=== PATIENT | male | born 1970 | race Hispanic/Latino ===

== ENCOUNTER 2022-02-11 19:55 | Inpatient (IN) | payer SELFPAY ==
[2022-02-11] MEDS ORDERED: Ondansetron PF 4 MG/2 ML Vial ONE (20:02)
[2022-02-11] MEDS ORDERED: Morphine 4 MG/ML VIAL ONE (20:02)
[2022-02-11] MEDS ORDERED: Aspirin Chewable 81 MG TAB ONE (20:19)
[2022-02-11 20:28] LABS: #Basophils 0.1 thou/uL (0.0-0.2); #Eosinphils 0.1 thou/uL (0.0-0.7); #Lymphocytes 3.9 thou/uL (1.20-3.40); #Monocytes 0.4 thou/uL (0.11-0.59); #Neutrophils 4.6 thou/uL (1.40-6.50); %Eosinophils 1.4 % (0.0-10.0); %Lymphocytes 42.7 % (21.0-51.0); %Monocytes 4.7 % (0.0-10.0); %Neutrophils 50.2 % (42.0-75.0); Hemoglobin 14.9 g/dL (14.0-18.0); Mean Corpuscular HGB CONC 33.7 g/dL (32.0-36.0); Mean Corpuscular Hemoglobin 33.1 pg (27.0-31.0); Mean Corpuscular Volume 98.3 fL (78.0-98.0); Mean Platelet Volume 5.8 fL (7.4-10.4); Platelet Count 295 thou/uL (130-400); RBC Distribution Width 12.8 % (11.5-14.5); Red Blood Cell (RBC) Count 4.48 mill/uL (4.70-6.10); White Blood Cell (WBC) Count 9.1 thou/uL (4.8-10.8)
[2022-02-11 20:44] LABS: ALT (SGPT) 23 U/L (8-55); AST (SGOT) 29 U/L (5-34); Albumin 4.2 g/dL (3.5-5.0); Alkaline Phosphatase 85 U/L (40-110); Anion Gap 15 mmol/L (10-20); BUN (Urea Nitrogen) 6 mg/dL (8.9-20.6); Bilirubin, Total 0.3 mg/dL (0.2-1.2); Calc. Creatinine Clearance 0 mL/min (70-130); Calcium 8.4 mg/dL (7.8-10.44); Carbon Dioxide 23 mmol/L (22-29); Chloride 108 mmol/L (98-107); Globulin 3.1 g/dL (2.4-3.5); Glucose 85 mg/dL (70-105); Potassium 3.7 mmol/L (3.5-5.1); Protein, Total 7.3 g/dL (6.0-8.3); Sodium 142 mmol/L (136-145)
[2022-02-11] MEDS ORDERED: Bisacodyl 10 MG SUPP PR PRN (22:37)
[2022-02-11] MEDS ORDERED: Ondansetron PF 4 MG/2 ML Vial IVP PRN (22:37)
[2022-02-11] MEDS ORDERED: hydrALAZINE 20 MG/ML VIAL SLOW IVP PRN (22:39)
[2022-02-11] MEDS ORDERED: Sodium Chloride 0.9% 1,000 ML IV SCH (22:45)
[2022-02-11] MEDS ORDERED: Morphine 2 MG/ML VIAL SLOW IVP SCH (23:00)
[2022-02-12 00:48] LABS: Troponin I Less than 0.010 ng/mL (< 0.028)
[2022-02-12] MEDS: Dextrose 5 % And 0.9 % NaCl 1,000 ML IV SCH ×2 (01:26→13:09)
[2022-02-12 04:09] LABS: SARS-CoV-2 NAA Rapid Test Not Detected (NotDetected)
[2022-02-12 05:24] LABS: ALT (SGPT) 22 U/L (8-55); AST (SGOT) 28 U/L (5-34); Alkaline Phosphatase 80 U/L (40-110); Anion Gap 14 mmol/L (10-20); BUN (Urea Nitrogen) 7 mg/dL (8.9-20.6); Bilirubin, Total 0.6 mg/dL (0.2-1.2); Calc. Creatinine Clearance 131 mL/min (70-130); Calcium 8.4 mg/dL (7.8-10.44); Carbon Dioxide 22 mmol/L (22-29); Chloride 108 mmol/L (98-107); Globulin 2.8 g/dL (2.4-3.5); Glucose 82 mg/dL (70-105); Potassium 3.8 mmol/L (3.5-5.1); Protein, Total 6.8 g/dL (6.0-8.3); Sodium 140 mmol/L (136-145)
[2022-02-12 05:25] LABS: Troponin I Less than 0.010 ng/mL (< 0.028)
[2022-02-12] MEDS: Morphine 2 MG/ML VIAL SLOW IVP PRN ×2 (05:27→10:22)
[2022-02-12] MEDS: Nicotine 14 MG PATCH TD SCH (05:28)
[2022-02-12] MEDS ORDERED: Enoxaparin Sodium 40 MG/0.4 ML SYRINGE SC SCH (09:00)
[2022-02-12] MEDS: Famotidine 20 MG TAB PO SCH ×2 (10:03→22:50)
[2022-02-12] MEDS ORDERED: MD-Gastroview 120 ML BOT ONE (10:18)
[2022-02-12] MEDS ORDERED: HYDROcodone/Acetaminophen 5/325 mg Tablet PO PRN (12:49)
[2022-02-12] MEDS ORDERED: Morphine 2 MG/ML VIAL SLOW IVP PRN (12:50)
[2022-02-12 13:55] VITALS: BMI 20.9
[2022-02-12] MEDS: methylPREDNISolone Sod Succ 40 MG VIAL IVP SCH (18:31)
[2022-02-12] MEDS ORDERED: ALPRAZolam 0.5 MG TAB PO PRN (19:01)
[2022-02-12] MEDS ORDERED: Cyclobenzaprine 10 MG TAB PO PRN (19:01)
[2022-02-12] MEDS ORDERED: Senokot 8.6 MG TAB PO SCH (21:00)
[2022-02-13] MEDS: methylPREDNISolone Sod Succ 40 MG VIAL IVP SCH ×2 (00:36→05:25)
[2022-02-13] MEDS: Dextrose 5 % And 0.9 % NaCl 1,000 ML IV SCH ×2 (00:36→08:44)
[2022-02-13] MEDS: Nicotine 14 MG PATCH TD SCH (00:36)
[2022-02-13 04:47] LABS: #Lymphocytes 0.8 thou/uL (1.20-3.40); #Monocytes 0.1 thou/uL (0.11-0.59); #Neutrophils 5.7 thou/uL (1.40-6.50); %Basophils 0.3 % (0.0-1.0); %Eosinophils 0.1 % (0.0-10.0); %Monocytes 0.9 % (0.0-10.0); %Neutrophils 86.7 % (42.0-75.0); Hemoglobin 15.8 g/dL (14.0-18.0); Mean Corpuscular HGB CONC 32.6 g/dL (32.0-36.0); Mean Corpuscular Hemoglobin 32.4 pg (27.0-31.0); Mean Corpuscular Volume 99.3 fL (78.0-98.0); Mean Platelet Volume 6.4 fL (7.4-10.4); Platelet Count 286 thou/uL (130-400); RBC Distribution Width 12.6 % (11.5-14.5); Red Blood Cell (RBC) Count 4.87 mill/uL (4.70-6.10); White Blood Cell (WBC) Count 6.6 thou/uL (4.8-10.8)
[2022-02-13 05:24] LABS: Anion Gap 12 mmol/L (10-20); BUN (Urea Nitrogen) 7 mg/dL (8.9-20.6); Calc. Creatinine Clearance 123 mL/min (70-130); Calcium 9.5 mg/dL (7.8-10.44); Carbon Dioxide 25 mmol/L (22-29); Chloride 103 mmol/L (98-107); Glucose 186 mg/dL (70-105); Potassium 4.2 mmol/L (3.5-5.1); Sodium 136 mmol/L (136-145)
[2022-02-13] MEDS ORDERED: Gabapentin 300 MG CAP PO SCH (08:15)
[2022-02-13] MEDS: Famotidine 20 MG TAB PO SCH (08:41)
[2022-02-13] MEDS ORDERED: Thiamine 100 MG TAB PO SCH (09:00)
[2022-02-13] MEDS ORDERED: Folic Acid 1 MG TAB PO SCH (09:00)
[2022-02-13] MEDS ORDERED: Tamsulosin HCl 0.4 MG CAP PO SCH (09:00)
[2022-02-13] MEDS ORDERED: Aspirin 325 MG TAB PO SCH (10:42)
[2022-02-13] MEDS: Nitroglycerin 0.4 MG TAB (25 Tab Bottle) SL PRN ×2 (10:54→11:02)
[2022-02-13] MEDS ORDERED: Lorazepam 2 MG/ML VIAL SLOW IVP PRN (10:54)
[2022-02-13 11:35] LABS: Troponin I Less than 0.010 ng/mL (< 0.028)
[2022-02-13 15:49] VITALS: BP 127/84; TEMP 98.2
== END 2022-02-13 18:37 | disposition home or self-care (01) | DRG 552 ==
LOC: ERS 19:55 → 2SW 22:23 → OBSVTOIN 02-12 16:08
PROVIDERS: ADMIT Hospitalist; ATTEND Hospitalist
PROC: HZ2ZZZZ Detoxification Services for Substance Abuse Treatment (ICD-10-PCS; principal; 2022-02-12)
DX: M51.16 Intervertebral disc disorders with radiculopathy, lumbar region (principal); F10.139 Alcohol abuse with withdrawal, unspecified; M48.061 Spinal stenosis, lumbar region without neurogenic claudication; Z20.822 Contact with and (suspected) exposure to COVID-19; R33.9 Retention of urine, unspecified; F17.210 Nicotine dependence, cigarettes, uncomplicated; N20.0 Calculus of kidney; N50.812 Left testicular pain
CPT/HCPCS: 36415; 71045; 72148; 74250; 76870; 80048; 80053; 84484; 85025; 85379; 93005; 93010; 93976; 96372; 96376; G0378; J1650; J2060; J2270; J2405; J2920; J7042; Q9963; U0002